=== PATIENT | female | born 1940 | race Caucasian/White ===

== ENCOUNTER 2019-04-05 11:46 | Day surgery (SDC) | payer MEDICARE ==
[~2019-04-05] VITALS: Ht 165.1 cm; Wt 102.7 kg
[~2019-04-05 11:46] MED LIST: ALBU8.5H8 INH; APIX5TAB PO; ATOR20TA86 PO; FLEC100T PO; FURO20TA3 PO; GABA300C10 PO; GABA600T7 PO; LEVA0.63 NEB; LEVO25TA4 PO; METO-93 PO; OXYC-302 PO; POTA10TA11 PO; SERT50TA28 PO; TIOT18CA INH
[2019-04-05 12:09] VITALS: BP 100/71
[2019-04-05] MEDS ORDERED: FENTANYL PF 100 MCG/2ML ONE (12:26)
[2019-04-05] MEDS ORDERED: PROPOFOL 10 MG/ML, 50ML ONE (12:34)
[2019-04-05] MEDS ORDERED: ACETAMINOPHEN 325 MG TABLET PO PRN (13:00)
[2019-04-05] MEDS ORDERED: FENTANYL PF 100 MCG/2ML IV PRN (13:00)
== END 2019-04-05 14:00 | disposition home or self-care (01) ==
LOC: OUT 11:46
PROVIDERS: ATTEND Internal Medicine
DX: R13.10 Dysphagia, unspecified (principal); K21.0 Gastro-esophageal reflux disease with esophagitis; I10 Essential (primary) hypertension; J44.9 Chronic obstructive pulmonary disease, unspecified; I48.91 Unspecified atrial fibrillation; G40.909 Epilepsy, unspecified, not intractable, without status epilepticus; M19.90 Unspecified osteoarthritis, unspecified site; Z79.891 Long term (current) use of opiate analgesic; Z79.01 Long term (current) use of anticoagulants; Z79.890 Hormone replacement therapy; Z79.899 Other long term (current) drug therapy; Z88.5 Allergy status to narcotic agent; Z88.8 Allergy status to other drugs, medicaments and biological substances; Z95.0 Presence of cardiac pacemaker; Z98.890 Other specified postprocedural states; Z82.49 Family history of ischemic heart disease and other diseases of the circulatory system; Z82.3 Family history of stroke; Z80.8 Family history of malignant neoplasm of other organs or systems
CPT/HCPCS: 43235; 93005; J2704; J3010

== ENCOUNTER 2019-05-18 12:56 | Outpatient (CLI) | payer MEDICARE | END 2019-05-18 23:59 | disposition home or self-care (01) | LOC: CVU 12:56 | PROVIDERS: ATTEND Internal Medicine Cardiovascular Disease | DX: I08.3 Combined rheumatic disorders of mitral, aortic and tricuspid valves (principal) | CPT/HCPCS: 93306 ==

== ENCOUNTER 2019-07-20 14:22 | Outpatient (CLI) | payer MEDICARE ==
[2019-07-28] MEDS ORDERED: SPIR25TA5 PO (06:41)
[2019-07-28] MEDS ORDERED: CARB200T4 PO (06:45)
[2019-07-28] MEDS ORDERED: TRAM50TA2 PO (06:48)
[2019-07-28] MEDS ORDERED: ACET-76 PO (06:51)
[2019-07-28] MEDS ORDERED: MELA1TAB22 PO (06:51)
[2019-07-29] MEDS ORDERED: CARB200T4 PO (10:25)
== END 2019-07-20 23:59 | disposition home or self-care (01) ==
LOC: RAD 14:22
PROVIDERS: ATTEND Physician Assistant Surgical
DX: M47.22 Other spondylosis with radiculopathy, cervical region (principal); M25.78 Osteophyte, vertebrae; M48.02 Spinal stenosis, cervical region; R59.0 Localized enlarged lymph nodes
CPT/HCPCS: 72141

== ENCOUNTER → 2020-01-04 | Outpatient (CLI) | payer MEDICARE ==
[~2020-01-04] MED LIST changes: +ACET-76 PO; +CARB200T4 PO; +MELA1TAB22 PO; +SPIR25TA5 PO; +TRAM50TA2 PO
== END | disposition home or self-care (01) ==
LOC: CFH 13:30
PROVIDERS: ATTEND Internal Medicine Critical Care Medicine
DX: J43.2 Centrilobular emphysema (principal); R59.0 Localized enlarged lymph nodes; R91.8 Other nonspecific abnormal finding of lung field
CPT/HCPCS: 71250

== ENCOUNTER 2020-08-25 11:53 | Emergency (ER) | payer MEDICARE, MEDICAID ==
[~2020-08-25] VITALS: Ht 165.1 cm; Wt 100.5 kg
[~2020-08-25 11:53] MED LIST changes: -OXYC-302 PO; +OXYC1TAB12 PO
--- NOTE | 2020-08-25 12:05 | NUR ---
Pt BIB EMS for diffuse ab pain that has been occuring for 1 week. Pt has a hx of bowl obstruction in the past and she is worried that she might have another obstruction. Pain is described as menstrual cramping in her upper abdomen. A&O x4, speaking in full sentences, daughter at bedside, connected to BP and O2 monitors, IV placed by EMS in R hand, provided warm blanket for comfort, VSS, NADN.
--- NOTE | 2020-08-25 12:27 | NUR ---
Pt assisted to BSC to void with SBA. Pt assisted back to bed and positioned for comfort with pillow and warm blanket. Urine sample obtained and sent to lab.
--- NOTE | 2020-08-25 12:32 | NUR ---
Dr. Yang at bedside to evaluate pt.
[2020-08-25 12:38] LABS: MICROSCOPIC NOT IND
[2020-08-25] MEDS ORDERED: ATOR-2 PO (12:38)
[2020-08-25] MEDS ORDERED: LEVE500T8 PO (12:38)
[2020-08-25] MEDS ORDERED: UMEC62.5 INH (12:38)
[2020-08-25] MEDS ORDERED: ESCI20TA8 PO (12:38)
[2020-08-25 12:51] LABS: MEAN CORPUSCULAR HGB CONC 32.9 g/dL (32.4-35.8); MEAN PLATELET VOLUME 8.5 fL (7.4-10.4); PLATELET COUNT 184 x10^3/uL (130-400); RED BLOOD COUNT 4.16 x10^6/uL (3.82-5.3); RED CELL DISTRIBUTION WIDTH 13.7 % (9.6-15.2)
[2020-08-25] MEDS ORDERED: SODIUM CHLORIDE FLUSH 10ML SYR IVF ONE (13:00)
[2020-08-25 13:02] LABS: ALANINE AMINOTRANSFERASE 15 U/L (12-78); ALBUMIN 3.9 g/dL (3.4-5.0); ANION GAP 4 mmol/L (5-15); CALCIUM 8.5 mg/dL (8.5-10.1); CHLORIDE 109 mmol/L (98-107); CREATININE 1.18 mg/dL (0.55-1.02)
[2020-08-25 13:04] LABS: ALKALINE PHOSPHATASE 43 U/L (45-117); BILIRUBIN,TOTAL 0.3 mg/dL (0.2-1.0); TOTAL PROTEIN 6.9 g/dL (6.4-8.2)
[2020-08-25 13:09] VITALS: BP 112/67
--- NOTE | 2020-08-25 13:12 | NUR ---
Pt resting comfortably in bed, daughter at bedside, positioned for comfort, VSS, NADN
[2020-08-25 13:14] LABS: EOS% (MANUAL) 1 % (1-7); MONOS#(MANUAL) 0.39 x10^3/uL (0.3-2.7); MONOS% (MANUAL) 2 % (2-9)
[2020-08-25 13:15] LABS: <PLATELET ESTIMATE> ADEQUATE; <PLT MORPHOLOGY> NORMAL PLT MORPH; <RBC MORPHOLOGY> NORMAL; LYMPH#(MANUAL) 15.96 x10^3/uL (1-3.4); LYMPHS% (MANUAL) 81 % (22-44); SEG#(MANUAL) 3.15 x10^3/uL (1.8-6.8); SEGS% (MANUAL) 16 % (42-75); SMUDGE CELLS 1+
[2020-08-25] MEDS ORDERED: OMNIPAQUE 350 MG/ML, 100ML BOTTLE ONE (13:30)
--- NOTE | 2020-08-25 13:56 | NUR ---
Pt tolerated CT well, no other requests at this time
--- NOTE | 2020-08-25 14:35 | NUR ---
task RN: Dr. Diaz at bedside for recheck
== END 2020-08-25 15:17 | disposition home or self-care (01) ==
LOC: ED 14:38
DX: R10.13 Epigastric pain (principal); R10.11 Right upper quadrant pain; R10.12 Left upper quadrant pain; R11.2 Nausea with vomiting, unspecified; I10 Essential (primary) hypertension; E11.9 Type 2 diabetes mellitus without complications; E78.00 Pure hypercholesterolemia, unspecified; Z86.73 Personal history of transient ischemic attack (TIA), and cerebral infarction without residual deficits; Z90.89 Acquired absence of other organs; Z95.0 Presence of cardiac pacemaker
CPT/HCPCS: 36415; 71045; 74177; 80053; 81003; 83605; 83690; 85025; 99285; Q9967

== ENCOUNTER 2020-09-14 09:07 | Inpatient (IN) | payer MEDICARE, MEDICAID ==
[~2020-09-14] VITALS: Ht 170.2 cm; Wt 110.8 kg
[~2020-09-14 09:07] MED LIST changes: +ATOR-2 PO; +ESCI20TA8 PO; +LEVE500T8 PO; -OXYC1TAB12 PO; +OXYC1TAB14 PO; +UMEC62.5 INH
--- NOTE | 2020-09-14 09:10 | NUR ---
daughter/ mackenzie sage [phone] Addendum: 09/14/20 at 0946 by DACIA SEYMOUR SAGE IS THE DAUGHTERS NAME NOT TIARA
--- NOTE | 2020-09-14 09:15 | NUR ---
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
[2020-09-14] MEDS ORDERED: SODIUM CHLORIDE FLUSH 10ML SYR IVF ONE (09:30)
[2020-09-14 09:56] LABS: MICROSCOPIC NOT IND
[2020-09-14] MEDS ORDERED: PLEASE ENTER HEIGHT AND WEIGHT MC SCH (10:00)
[2020-09-14 10:04] LABS: MEAN CORPUSCULAR HEMOGLOBIN 31.9 pg (27.0-34.8); MEAN CORPUSCULAR HGB CONC 32.8 g/dL (32.4-35.8); MEAN PLATELET VOLUME 8.6 fL (7.4-10.4); PLATELET COUNT 183 x10^3/uL (130-400); RED BLOOD COUNT 3.99 x10^6/uL (3.82-5.3)
--- NOTE | 2020-09-14 10:15 | NUR ---
AO4 AT THIS TIME WAITING TEST RESULTS
[2020-09-14 10:21] LABS: ALBUMIN 3.7 g/dL (3.4-5.0); CHLORIDE 113 mmol/L (98-107)
[2020-09-14 10:26] LABS: ALANINE AMINOTRANSFERASE 16 U/L (12-78); ALKALINE PHOSPHATASE 51 U/L (45-117); ANION GAP 2 mmol/L (5-15); BILIRUBIN,TOTAL 0.2 mg/dL (0.2-1.0); CREATININE 1.18 mg/dL (0.55-1.02); TOTAL PROTEIN 6.5 g/dL (6.4-8.2)
[2020-09-14 10:31] LABS: MD YES; SALICYLATE LEVEL < 1.7 mg/dL (2.8-20.0)
[2020-09-14] MEDS ORDERED: LORazepam 2 MG/ML, 1ML ONE (10:34)
[2020-09-14 10:38] LABS: LYMPH#(MANUAL) 19.81 x10^3/uL (1-3.4); LYMPHS% (MANUAL) 85 % (22-44); SEGS% (MANUAL) 15 % (42-75)
[2020-09-14 10:39] LABS: <PLATELET ESTIMATE> ADEQUATE; <PLT MORPHOLOGY> NORMAL PLT MORPH; <RBC MORPHOLOGY> NORMAL; SMUDGE CELLS 1+
--- NOTE | 2020-09-14 10:45 | NUR ---
ON RETURN FROM CT PT NOTED TO HAVE A PETIT MAL SEIZURE ERP MADE AWARE NO NEW ORDERS VITALS REMAINED STABLE THROUGH OUT
--- NOTE | 2020-09-14 11:19 | NUR ---
report from aaliyah randall. assuming care of pt. pt transferred to 8. vss. nadn. no sz activity. pt aaox4 at this time.
[2020-09-14] MEDS ORDERED: LACOSAMIDE 200 MG in SODIUM CHLORIDE 0.9% 100 ML IV STA (11:41)
[2020-09-14] MEDS ORDERED: SODIUM CHLORIDE 0.9% 1,000 ML IV ONE (12:00)
[2020-09-14] MEDS ORDERED: SODIUM CHLORIDE FLUSH 10ML SYR IVF PRN (12:00)
--- NOTE | 2020-09-14 12:18 | NUR ---
PT ASLEEP IN BED. VSS. NADN. MEDICATED PER EMAR.
--- NOTE | 2020-09-14 12:30 | NUR ---
REPORT CALLED TO LUCRECIA BRAVO
[2020-09-14 13:30] VITALS: BP 125/74
[2020-09-14] MEDS ORDERED: ONDANSETRON ODT 4 MG PO PRN (13:30)
[2020-09-14] MEDS ORDERED: POLYETHYLENE GLYCOL 17 GM PACKET PO PRN (13:30)
[2020-09-14] MEDS ORDERED: SENNA/DOCUSATE TABLET PO PRN (13:30)
[2020-09-14] MEDS ORDERED: ONDANSETRON 2MG/ML, 2ML IVPush PRN (13:30)
[2020-09-14] MEDS: HEPARIN 5,000 UNITS/ML, 1ML SQ SCH ×2 (14:19→22:25)
[2020-09-14] MEDS: LEVETIRACETAM 500 MG TABLET PO SCH ×2 (17:35→21:00)
[2020-09-14 19:59] VITALS: BP 128/61
[2020-09-14] MEDS: GABAPENTIN 300 MG CAPSULE PO SCH (21:00)
[2020-09-14] MEDS ORDERED: ALBUTEROL-IPRATROPIUM MDI INH INH SCH (21:00)
[2020-09-14] MEDS: FLECAINIDE 100MG TABLET PO SCH (21:00)
[2020-09-14] MEDS: CARBAMAZEPINE 200 MG TABLET PO SCH (21:00)
[2020-09-14] MEDS: ATORVASTATIN 40 MG TABLET PO SCH (21:00)
[2020-09-14] MEDS: LACOSAMIDE 150 MG in SODIUM CHLORIDE 0.9% 100 ML IV SCH (23:16)
[2020-09-15 01:11] VITALS: BP 134/74
[2020-09-15] MEDS ORDERED: LORazepam 2 MG/ML, 1ML IVPush PRN (03:30)
[2020-09-15] MEDS ORDERED: ACETAMINOPHEN 325 MG SUPP PR PRN (04:00)
[2020-09-15] MEDS: HEPARIN 5,000 UNITS/ML, 1ML SQ SCH ×3 (05:36→21:16)
[2020-09-15 06:03] LABS: MEAN CORPUSCULAR HEMOGLOBIN 32.2 pg (27.0-34.8); MEAN CORPUSCULAR HGB CONC 32.8 g/dL (32.4-35.8); MEAN PLATELET VOLUME 8.8 fL (7.4-10.4); PLATELET COUNT 164 x10^3/uL (130-400); RED BLOOD COUNT 3.86 x10^6/uL (3.82-5.3); RED CELL DISTRIBUTION WIDTH 13.8 % (9.6-15.2)
[2020-09-15 06:11] LABS: ALANINE AMINOTRANSFERASE 23 U/L (12-78); ALBUMIN 3.3 g/dL (3.4-5.0); ANION GAP 4 mmol/L (5-15); CALCIUM 7.9 mg/dL (8.5-10.1); CHLORIDE 113 mmol/L (98-107); CREATININE 0.89 mg/dL (0.55-1.02)
[2020-09-15] MEDS ORDERED: POLY119P PO (06:13)
[2020-09-15] MEDS ORDERED: METO-93 PO (06:13)
[2020-09-15] MEDS ORDERED: FAMO20TA7 PO (06:13)
[2020-09-15] MEDS ORDERED: BUDE10.22 HHN (06:13)
[2020-09-15] MEDS ORDERED: FLEC150T PO (06:13)
[2020-09-15] MEDS ORDERED: UMEC62.5 PO (06:13)
[2020-09-15] MEDS ORDERED: LACO100T PO (06:13)
[2020-09-15] MEDS ORDERED: SULF1TAB23 PO (06:13)
[2020-09-15] MEDS ORDERED: TRIA15CR61 TP (06:13)
[2020-09-15] MEDS ORDERED: MELA3TAB31 PO (06:13)
[2020-09-15 06:22] LABS: ALKALINE PHOSPHATASE 45 U/L (45-117); BILIRUBIN,TOTAL 0.2 mg/dL (0.2-1.0); TOTAL PROTEIN 6.1 g/dL (6.4-8.2)
[2020-09-15 06:33] VITALS: BP 147/80
[2020-09-15 07:35] LABS: MD YES
[2020-09-15 07:45] LABS: <PLATELET ESTIMATE> ADEQUATE; <PLT MORPHOLOGY> NORMAL PLT MORPH; <RBC MORPHOLOGY> NORMAL; BAND#(MANUAL) 0.25 x10^3/uL; BANDS%(MANUAL) 1 % (0-7); EOS#(MANUAL) 0.25 x10^3/uL (0.0-0.4); EOS% (MANUAL) 1 % (1-7); LYMPH#(MANUAL) 20.07 x10^3/uL (1-3.4); LYMPHS% (MANUAL) 79 % (22-44); MONOS#(MANUAL) 0.25 x10^3/uL (0.3-2.7); MONOS% (MANUAL) 1 % (2-9); SEG#(MANUAL) 4.57 x10^3/uL (1.8-6.8); SEGS% (MANUAL) 18 % (42-75); SMUDGE CELLS 1+
[2020-09-15] MEDS: LEVETIRACETAM 500 MG TABLET PO SCH ×3 (09:09→21:13)
[2020-09-15] MEDS: ESCITALOPRAM 10MG TABLET PO SCH (09:09)
[2020-09-15] MEDS: METOPROLOL SUCCINATE 50 MG TAB.ER.24H PO SCH (09:10)
[2020-09-15] MEDS: SPIRONOLACTONE 25 MG TABLET PO SCH (09:10)
[2020-09-15] MEDS: CARBAMAZEPINE 200 MG TABLET PO SCH ×2 (09:10→21:14)
[2020-09-15] MEDS: FLECAINIDE 100MG TABLET PO SCH ×2 (09:11→21:14)
[2020-09-15] MEDS: FUROSEMIDE 20 MG TABLET PO SCH (09:11)
[2020-09-15] MEDS: LEVOTHYROXINE 50 MCG TABLET PO SCH (09:15)
[2020-09-15] MEDS: ACETAMINOPHEN 325 MG TABLET PO PRN ×2 (09:26→21:41)
[2020-09-15] MEDS: ALBUTEROL/IPRATROPIUM 2.5MG/0.5MG, 3 ML NPPB SCH ×2 (09:55→18:55)
[2020-09-15] MEDS: LACOSAMIDE 150 MG in SODIUM CHLORIDE 0.9% 100 ML IV SCH ×2 (10:48→21:41)
[2020-09-15 12:00] VITALS: BP 90/57
[2020-09-15 21:08] VITALS: BP 129/81
[2020-09-15] MEDS: GABAPENTIN 300 MG CAPSULE PO SCH (21:13)
[2020-09-15] MEDS: ATORVASTATIN 40 MG TABLET PO SCH (21:14)
[2020-09-15] MEDS: MELATONIN 5 MG TABLET PO PRN (21:41)
[2020-09-16 00:58] VITALS: BP 101/67
[2020-09-16] MEDS: HEPARIN 5,000 UNITS/ML, 1ML SQ SCH ×3 (05:17→21:13)
[2020-09-16] MEDS: LEVOTHYROXINE 50 MCG TABLET PO SCH (05:18)
[2020-09-16 07:46] VITALS: BP 126/80
[2020-09-16] MEDS: ESCITALOPRAM 10MG TABLET PO SCH (08:22)
[2020-09-16] MEDS: METOPROLOL SUCCINATE 50 MG TAB.ER.24H PO SCH (08:22)
[2020-09-16] MEDS: SPIRONOLACTONE 25 MG TABLET PO SCH (08:22)
[2020-09-16] MEDS: LEVETIRACETAM 500 MG TABLET PO SCH ×3 (08:22→21:15)
[2020-09-16] MEDS: FUROSEMIDE 20 MG TABLET PO SCH (08:22)
[2020-09-16] MEDS: FLECAINIDE 100MG TABLET PO SCH ×2 (08:22→21:13)
[2020-09-16] MEDS: ALBUTEROL/IPRATROPIUM 2.5MG/0.5MG, 3 ML NPPB SCH ×2 (10:00→20:00)
[2020-09-16] MEDS: LACOSAMIDE 150 MG in SODIUM CHLORIDE 0.9% 100 ML IV SCH (10:13)
[2020-09-16] MEDS: CARBAMAZEPINE 200 MG TABLET PO SCH ×2 (11:37→21:14)
[2020-09-16 12:02] VITALS: BP 97/63
[2020-09-16 12:42] LABS: TROPONIN I < 0.015 ng/mL (0.000-0.045)
[2020-09-16 19:36] VITALS: BP 127/71
[2020-09-16] MEDS ORDERED: TRIAMCINOLONE CRM 0.1%, 15GM TP PRN (20:30)
[2020-09-16] MEDS: FAMOTIDINE 20 MG TABLET PO SCH (21:15)
[2020-09-16] MEDS: ATORVASTATIN 40 MG TABLET PO SCH (21:15)
[2020-09-16] MEDS: GABAPENTIN 300 MG CAPSULE PO SCH (21:15)
[2020-09-16] MEDS ORDERED: LACOSAMIDE 50 MG TAB ONE (22:30)
[2020-09-16] MEDS: ACETAMINOPHEN 325 MG TABLET PO PRN (22:34)
[2020-09-16] MEDS: LACOSAMIDE 50 MG TABLET PO SCH (22:34)
[2020-09-16] MEDS: MELATONIN 5 MG TABLET PO PRN (22:34)
[2020-09-17 01:41] VITALS: BP 107/69
[2020-09-17] MEDS: LEVOTHYROXINE 50 MCG TABLET PO SCH (05:14)
[2020-09-17] MEDS: HEPARIN 5,000 UNITS/ML, 1ML SQ SCH ×3 (05:14→21:09)
[2020-09-17 05:28] LABS: MEAN CORPUSCULAR HEMOGLOBIN 32.3 pg (27.0-34.8); MEAN CORPUSCULAR HGB CONC 33.1 g/dL (32.4-35.8); PLATELET COUNT 159 x10^3/uL (130-400); RED BLOOD COUNT 3.68 x10^6/uL (3.82-5.3); RED CELL DISTRIBUTION WIDTH 13.4 % (9.6-15.2)
[2020-09-17 05:43] LABS: ANION GAP 5 mmol/L (5-15); CALCIUM 8.1 mg/dL (8.5-10.1); CHLORIDE 110 mmol/L (98-107)
[2020-09-17 05:45] LABS: CREATININE 0.83 mg/dL (0.55-1.02)
[2020-09-17 05:58] LABS: MD YES
[2020-09-17 05:59] LABS: <PLATELET ESTIMATE> ADEQUATE; <RBC MORPHOLOGY> NORMAL; EOS#(MANUAL) 0.64 x10^3/uL (0.0-0.4); EOS% (MANUAL) 3 % (1-7); LYMPH#(MANUAL) 17.25 x10^3/uL (1-3.4); LYMPHS% (MANUAL) 81 % (22-44); MONOS#(MANUAL) 0.64 x10^3/uL (0.3-2.7); MONOS% (MANUAL) 3 % (2-9); SEG#(MANUAL) 2.77 x10^3/uL (1.8-6.8); SEGS% (MANUAL) 13 % (42-75); SMUDGE CELLS 1+
[2020-09-17 06:00] LABS: <PLT MORPHOLOGY> NORMAL PLT MORPH
[2020-09-17 08:26] VITALS: BP 149/82
[2020-09-17] MEDS: SPIRONOLACTONE 25 MG TABLET PO SCH (08:35)
[2020-09-17] MEDS: FUROSEMIDE 20 MG TABLET PO SCH (08:36)
[2020-09-17] MEDS: FLECAINIDE 100MG TABLET PO SCH ×2 (08:36→20:55)
[2020-09-17] MEDS: ALBUTEROL/IPRATROPIUM 2.5MG/0.5MG, 3 ML NPPB SCH ×2 (08:36→19:45)
[2020-09-17] MEDS: LEVETIRACETAM 500 MG TABLET PO SCH ×3 (08:36→20:58)
[2020-09-17] MEDS: ESCITALOPRAM 10MG TABLET PO SCH (08:37)
[2020-09-17] MEDS: METOPROLOL SUCCINATE 50 MG TAB.ER.24H PO SCH (08:37)
[2020-09-17] MEDS: FAMOTIDINE 20 MG TABLET PO SCH ×2 (08:37→20:57)
[2020-09-17] MEDS: LACOSAMIDE 50 MG TABLET PO SCH ×2 (08:49→20:57)
[2020-09-17] MEDS: CARBAMAZEPINE 200 MG TABLET PO SCH ×2 (08:50→20:55)
[2020-09-17] MEDS ORDERED: ALBUTEROL/IPRATROPIUM 2.5MG/0.5MG, 3 ML NPPB PRN (11:00)
[2020-09-17 12:42] VITALS: BP 105/66
[2020-09-17 19:36] VITALS: BP 129/72
[2020-09-17] MEDS: ATORVASTATIN 40 MG TABLET PO SCH (20:57)
[2020-09-17] MEDS: GABAPENTIN 300 MG CAPSULE PO SCH (20:57)
[2020-09-17] MEDS: MELATONIN 5 MG TABLET PO PRN (20:57)
[2020-09-17] MEDS: ACETAMINOPHEN 325 MG TABLET PO PRN (20:57)
[2020-09-18 01:33] VITALS: BP 107/65
[2020-09-18] MEDS: HEPARIN 5,000 UNITS/ML, 1ML SQ SCH ×2 (05:02→14:28)
[2020-09-18] MEDS: LEVOTHYROXINE 50 MCG TABLET PO SCH (05:03)
[2020-09-18] MEDS: ALBUTEROL/IPRATROPIUM 2.5MG/0.5MG, 3 ML NPPB SCH (08:29)
[2020-09-18] MEDS: ESCITALOPRAM 10MG TABLET PO SCH (08:37)
[2020-09-18] MEDS: FLECAINIDE 100MG TABLET PO SCH (08:38)
[2020-09-18] MEDS: CARBAMAZEPINE 200 MG TABLET PO SCH (08:38)
[2020-09-18 08:39] VITALS: BP 140/65
[2020-09-18] MEDS: LEVETIRACETAM 500 MG TABLET PO SCH (08:39)
[2020-09-18] MEDS: FAMOTIDINE 20 MG TABLET PO SCH (08:39)
[2020-09-18] MEDS: FUROSEMIDE 20 MG TABLET PO SCH (08:39)
[2020-09-18] MEDS: LACOSAMIDE 50 MG TABLET PO SCH (08:39)
[2020-09-18] MEDS: SPIRONOLACTONE 25 MG TABLET PO SCH (08:39)
[2020-09-18] MEDS: METOPROLOL SUCCINATE 50 MG TAB.ER.24H PO SCH (08:39)
[2020-09-18 14:45] VITALS: BP 133/78
== END 2020-09-18 15:45 | DRG 101 ==
LOC: ED 09:56 → EDIP 11:53 → 4EST 12:46
PROVIDERS: ADMIT Family Medicine; ATTEND Family Medicine
PROC: 0T9B30Z Drainage of Bladder with Drainage Device, Percutaneous Approach (ICD-10-PCS; principal; 2020-09-14)
DX: G40.919 Epilepsy, unspecified, intractable, without status epilepticus (principal); C91.10 Chronic lymphocytic leukemia of B-cell type not having achieved remission; D68.69 Other thrombophilia; J96.11 Chronic respiratory failure with hypoxia; I25.10 Atherosclerotic heart disease of native coronary artery without angina pectoris; N18.30 Chronic kidney disease, stage 3 unspecified; J44.9 Chronic obstructive pulmonary disease, unspecified; G62.9 Polyneuropathy, unspecified; E03.9 Hypothyroidism, unspecified; E11.22 Type 2 diabetes mellitus with diabetic chronic kidney disease; E78.00 Pure hypercholesterolemia, unspecified; G89.29 Other chronic pain; E66.9 Obesity, unspecified; I12.9 Hypertensive chronic kidney disease with stage 1 through stage 4 chronic kidney disease, or unspecified chronic kidney disease; I45.4 Nonspecific intraventricular block; I48.91 Unspecified atrial fibrillation; I49.5 Sick sinus syndrome; K29.70 Gastritis, unspecified, without bleeding; Z79.01 Long term (current) use of anticoagulants; Z79.899 Other long term (current) drug therapy; Z86.73 Personal history of transient ischemic attack (TIA), and cerebral infarction without residual deficits; Z87.440 Personal history of urinary (tract) infections; Z87.891 Personal history of nicotine dependence; Z95.0 Presence of cardiac pacemaker; Z88.8 Allergy status to other drugs, medicaments and biological substances; Z88.5 Allergy status to narcotic agent; Z82.49 Family history of ischemic heart disease and other diseases of the circulatory system; Z83.3 Family history of diabetes mellitus; Z83.6 Family history of other diseases of the respiratory system; Z90.49 Acquired absence of other specified parts of digestive tract
CPT/HCPCS: 36415; 70450; 71045; 80048; 80053; 80156; 80299; 80329; 81003; 82962; 83605; 83735; 84443; 84484; 85025; 87040; 93005; 94640; 95715; 95819; 96374; C9254; G0378; J1644; 92523-GN; G0480; J7030

== ENCOUNTER 2020-09-24 14:02 | Emergency (ER) | payer MEDICARE, MEDICAID ==
[~2020-09-24] VITALS: Ht 167.6 cm; Wt 104.5 kg
[~2020-09-24 14:02] MED LIST changes: +BUDE10.22 HHN; +FAMO20TA7 PO; +FLEC150T PO; +LACO100T PO; +MELA3TAB31 PO; +POLY119P PO; +SULF1TAB23 PO; +TRIA15CR61 TP; +UMEC62.5 PO
--- NOTE | 2020-09-24 14:05 | NUR ---
PT BIB [facility] FROM HOME BECAUSE DAUGHTER CONCERNED THAT PT FELL RECENTLY WHEN SHE WAS AT SNF AND IS NOW MORE LETHARGIC AND CONFUSED. PT ARRIVES TO ED C/O MILD HEADACHE BUT NO OTHER COMPLAINTS. OX3. PT STATES SHE TOOK A NAP TODAY "BECAUSE MY DAUGHTER TOLD ME TO, BUT THEN SHE SAID I SLEPT FOR 5 HOURS". PT IS ON ELIQUIS. VSS PER EMS; HR 60s PACED, BS 106. PER EMS & DAUGHTER PT HAS SEIZURE-LIKE DISORDER, DAUGHTER STATES, "SHE WAS SEEN BY [facility]; THEY'RE MORE PSYCHOGENIC".
--- NOTE | 2020-09-24 14:10 | NUR ---
ERP WAS IN TO SEE PT.
--- NOTE | 2020-09-24 14:15 | NUR ---
PT'S DAUGHTER SEYMOUR (KNOWN ARIADNA TO PT) CALLED - . DAUGHTER REPORTS SHE'S CONCERNED THAT PT FELL WHILE SHE WAS AT SNF RECENTLY AND "DIDN'T REPORT IT". REPORTS PT HAS LUMP ON POSTERIOR HEAD. STATES PT IS MORE LETHARGIC AND IS SAYING THINGS THAT AREN'T RIGHT. PT IS ON ELIQUIS. ERP NOTIFIED, WILL ORDER CT.
[2020-09-24 14:47] LABS: MEAN CORPUSCULAR HEMOGLOBIN 31.8 pg (27.0-34.8); MEAN CORPUSCULAR HGB CONC 32.5 g/dL (32.4-35.8); MEAN PLATELET VOLUME 9.1 fL (7.4-10.4); PLATELET COUNT 175 x10^3/uL (130-400); RED BLOOD COUNT 3.98 x10^6/uL (3.82-5.3); RED CELL DISTRIBUTION WIDTH 13.7 % (9.6-15.2)
[2020-09-24 14:47] LABS: MICROSCOPIC AUTO
[2020-09-24 14:57] LABS: ALBUMIN 3.5 g/dL (3.4-5.0); ANION GAP 3 mmol/L (5-15); CALCIUM 8.8 mg/dL (8.5-10.1); CHLORIDE 112 mmol/L (98-107)
[2020-09-24 14:59] LABS: CREATININE 1.38 mg/dL (0.55-1.02)
--- NOTE | 2020-09-24 15:00 | NUR ---
PT TO CT VIA [facility].
--- NOTE | 2020-09-24 15:13 | NUR ---
PT RETURNS FROM CT. DAUGHTER NOW AT BS.
[2020-09-24 15:16] VITALS: BP 107/50
--- NOTE | 2020-09-24 15:16 | NUR ---
WATER PROVIDED TO PT PER ERP, PT DRANK WITHOUT DIFFICULTY.
[2020-09-24] MEDS ORDERED: APIX5TAB PO (15:21)
[2020-09-24 15:28] LABS: MD YES
[2020-09-24] MEDS ORDERED: SODIUM CHLORIDE 0.9% 1,000ML IVBOLUS ONE (15:30)
--- NOTE | 2020-09-24 16:03 | NUR ---
ADDITIONAL LAB DRAWN. IV BOLUS INFUSING. RV'WD POC WITH PT AND DAUGHTER.
[2020-09-24 17:05] LABS: EOS#(MANUAL) 0.56 x10^3/uL (0.0-0.4); EOS% (MANUAL) 2 % (1-7); LYMPH#(MANUAL) 23.91 x10^3/uL (1-3.4); LYMPHS% (MANUAL) 86 % (22-44); MONOS#(MANUAL) 0.83 x10^3/uL (0.3-2.7); MONOS% (MANUAL) 3 % (2-9); REACTIVE LYMPHS # (MANUAL) 0.56 x10^3/uL (0-0); REACTIVE LYMPHS % (MANUAL) 2 % (0-0); SEG#(MANUAL) 1.95 x10^3/uL (1.8-6.8); SEGS% (MANUAL) 7 % (42-75)
--- NOTE | 2020-09-24 17:06 | NUR ---
[facility] SENT TO [facility], WILL TAKE ANOTHER 1.5 HOURS PER LAB. ERP AWARE. UPDATED PT & DAUGHTER ON POC, THEY WOULD LIKE TO TAKE PT HOME AT THIS TIME.
[2020-09-24 17:15] LABS: <PLATELET ESTIMATE> ADEQUATE; <PLT MORPHOLOGY> NORMAL PLT MORPH; <RBC MORPHOLOGY> NORMAL
[2020-09-24 17:17] LABS: SMUDGE CELLS 1+
--- NOTE | 2020-09-24 18:00 | NUR ---
D/C INSTRUCTIONS & F/U APPT RV'WD WITH PT & DAUGHTER, THEY VERBALIZE UNDERSTANDING. ASSISTED PT OUT OF ED VIA WC WITH DAUGHTER.
== END 2020-09-24 17:58 | disposition home or self-care (01) ==
LOC: ED 14:10
DX: S09.90XA Unspecified injury of head, initial encounter (principal); R41.82 Altered mental status, unspecified; I10 Essential (primary) hypertension; E11.9 Type 2 diabetes mellitus without complications; E03.9 Hypothyroidism, unspecified; E78.00 Pure hypercholesterolemia, unspecified; I48.91 Unspecified atrial fibrillation; Z79.01 Long term (current) use of anticoagulants; Z86.73 Personal history of transient ischemic attack (TIA), and cerebral infarction without residual deficits; Z90.89 Acquired absence of other organs; Z95.0 Presence of cardiac pacemaker; X58.XXXA Exposure to other specified factors, initial encounter; Y93.89 Activity, other specified; Y92.89 Other specified places as the place of occurrence of the external cause; Y99.8 Other external cause status
CPT/HCPCS: 36415; 70450; 80048; 80156; 81001; 82040; 85025; 87086; 93005; 96360; 99285; J7030

== ENCOUNTER → 2020-10-17 | Outpatient (CLI) | payer MEDICARE, MEDICAID | END | disposition home or self-care (01) | LOC: RAD 11:37 | PROVIDERS: ATTEND Psychiatry & Neurology Child & Adolescent Psychiatry | DX: G31.89 Other specified degenerative diseases of nervous system (principal); G40.109 Localization-related (focal) (partial) symptomatic epilepsy and epileptic syndromes with simple partial seizures, not intractable, without status epilepticus; I35.0 Nonrheumatic aortic (valve) stenosis; I63.9 Cerebral infarction, unspecified | CPT/HCPCS: 70551 ==